=== PATIENT | male | born 1965 | race Caucasian/White ===

== ENCOUNTER → 2023-05-10 15:27 | Outpatient (CLI) | payer OTHER, SELFPAY ==
--- NOTE | ~2023-05-10 | MR_ITS ---
EXAMINATION: MR knee LT wo con DATE: 05/10/2023 16:03 INDICATION: Bilateral primary osteoarthritis of the knees. Medial left knee pain. TECHNIQUE: Magnetic resonance imaging (MRI) of the left knee was performed without intravenous contra st. Sequences included axial PD-weighted FS FSE, coronal PD-weighted FSE and PD-weighted FS FSE, sagi ttal PD-weighted FSE, and sagittal T2-weighted FS FSE. COMPARISON: Left knee radiographs 07/18/22 FINDINGS: Medial compartment: There is a complex tear involving body and posterior horn of medial meniscus. There is shallow partia l-thickness cartilage loss of tibial condyle. There is mild subchondral edema-like marrow signal inte nsity involving the medial articular surface. There is partial-thickness cartilage loss of femoral co ndyle, deep at the central articular surface. There are tiny osteophytes. Lateral compartment: Lateral meniscus is normal. Lateral compartment cartilage is normal. There are tiny osteophytes. Patellofemoral compartment: There is shallow partial-thickness cartilage loss of patellar medial and lateral facets. The trochlea r cartilage is normal. There are tiny osteophytes. Ligaments and tendons: The anterior and posterior cruciate ligaments are normal. Medial collateral ligament and lateral mirna ateral ligament complex are normal. There is mild patellar tendinopathy. Fluid: There is a small knee joint effusion. There is mild prepatellar and superficial infrapatellar bursiti s. IMPRESSION: 1. Moderate chondrosis of medial compartment and mild chondrosis of patellofemoral compartment. 2. Tear of medial meniscus. 3. Small knee joint effusion. Reviewed, dictated and finalized at location E. IMPRESSION: 1. Moderate chondrosis of medial compartment and mild chondrosis of patellofemo ral compartment. 2. Tear of medial meniscus. 3. Small knee joint effusion.
--- NOTE | ~2023-05-10 | MR_ITS ---
EXAMINATION: MR knee RT wo con DATE: 05/10/2023 16:11 INDICATION: M17.0 - Bilateral primary osteoarthritis of knee TECHNIQUE: Magnetic resonance imaging (MRI) of the knee was performed without intravenous contrast. S equences included axial PD-weighted FS FSE, coronal PD-weighted FSE and PD-weighted FS FSE, sagittal PD-weighted FSE, and sagittal T2-weighted FS FSE. COMPARISON: X-ray knee 07/18/2022, images only FINDINGS: Medial compartment: Linear, obliquely oriented intermediate signal extending from the articular surface at the junction o f the posterior horn and body, extending through the substance of the posterior horn and to the under surface the posterior horn more medially. Moderate diffuse cartilage thinning in the medial compartme nt. Mild osteophytosis. Lateral compartment: Apical tear of the meniscal body. Mild diffuse cartilage thinning. Mild osteophytosis. Patellofemoral compartment: Minimal partial-thickness, linear cartilage signal abnormality in the lateral facet. Intact retinacul a. Mild osteophytosis. Ligaments and tendons: The ACL, PCL, MCL, and LCL are intact. Remaining flexor and extensor tendons are intact. Fluid: Small volume joint fluid. Small Leach's cyst. Osseous/other: No suspicious focal or diffuse marrow signal. IMPRESSION: Oblique, likely healed or partially healed meniscal tear involving the body and posterior horn of the medial meniscus. Apical tear of the body of the lateral meniscus. Tricompartmental osteoarthritic changes, moderate in the medial compartment. Small joint effusion. Small Leach's cyst. Reviewed, dictated and finalized at location K.
== END ==
PROVIDERS: PCP Orthopaedic Surgery; Visit Provider Orthopaedic Surgery
DX: M17.0 Bilateral primary osteoarthritis of knee (principal)
CPT/HCPCS: 73721

== ENCOUNTER 2023-07-18 14:09 | Emergency (ER) | payer OTHER, SELFPAY ==
[2023-07-18 14:13] VITALS: BP 143/81; PULSE 64; RESP 18; TEMP 36.3; O2SAT 100
--- NOTE | 2023-07-18 15:50 | PC.NURSE ---
Pt states he would no longer like to wait and will come back later
== END 2023-07-18 16:08 | disposition left against medical advice (07) ==
DX: R06.02 Shortness of breath (principal)
CPT/HCPCS: 99199

== ENCOUNTER 2023-07-19 08:12 | Emergency (ER) | payer OTHER, SELFPAY ==
[2023-07-19] VITALS (40 sets, daily range): BP systolic 111–139; BP diastolic 67–85; PULSE 52–79; RESP 12–24; O2SAT 90–100
--- NOTE | ~2023-07-19 | XR_ITS ---
EXAMINATION: XR chest 1V portable 07/19/2023 09:01 INDICATION: Shortness of breath. Upper chest pain. PROCEDURE: AP portable chest COMPARISON: No prior studies for comparison. FINDINGS: The lungs are clear. The cardiomediastinal silhouette is within normal limits. There are no pleural effusions. There is no pneumothorax suspected. IMPRESSION: 1: NO ACUTE CARDIOPULMONARY DISEASE. Reviewed, dictated and finalized at location B. [employer]
--- NOTE | 2023-07-19 08:31 | ED.GENADULT ---
HPI - General Adult General Chief complaint: Shortness of Breath/Dyspnea Stated complaint: pain with taking deep breath Time Seen by Provider: 07/19/23 08:21 History of Present Illness HPI narrative: 57-year-old male presenting to the ED for evaluation of shortness of breath that is been worsening over the last 4 days. Patient states he does have intermittent chest pain with this and does describe some right-sided chest pressure. Patient denies any sharp pain with deep inspiration. Patient denies any recent cough colds or fevers. Patient denies any prior history of VA and has not had a stress test. Patient denies any prior history of PE or DVT. Related Data Home Medications Medication Instructions Recorded Confirmed atorvastatin 10 mg tablet 10 mg PO DAILY 05/22/23 05/22/23 Allergies Allergy/AdvReac Type Severity Reaction Status Date / Time No Known Allergies Allergy Verified 07/18/23 14:10 Review of Systems Review of Systems: All systems reviewed & are unremarkable except as noted in HPI and below PMFSH Past Medical History Medical History Arthritis Degenerative arthritis of knee, bilateral Sinusitis Surgical History Surgical History History of appendectomy History of arthroscopy of both knees Dr. 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 HEAD: normocephalic, atraumatic. EYES: PERRLA/EOMI, conjunctivae clear. NOSE: Normal no drainage EARS:TMS clear with good light reflex. THROAT: Pharynx clear, no exudate. NECK: Supple. No adenopathy, no masses. RESPIRATORY: Airway patent, respirations nonlabored. Clear to auscultation bilaterally, no rales, rhonchi, wheezing. CARDIOVASCULAR: Regular rate and rhythm without murmurs rubs or gallops. ABDOMINAL: Soft, nontender, nondistended, normal bowel sounds MUSCULOSKELETAL: Moves all extremities. Strength/ROM intact, No edema, No calf tenderness. NEURO: Alert. Cranial nerves II through XII intact. Grossly intact SKIN: Warm, dry. Normal Color Course Course Emergency Course: 57-year-old male presenting ED for evaluation of shortness of breath and right-sided chest pain. EKG showed no evidence of acute STEMI. Patient was afebrile with no leukocytosis and a stable hemoglobin. No significant abnormalities on his CMP. Patient had negative serial troponins and a normal BNP. Patient was negative for influenza RSV and COVID. Patient did feel improved after the breathing treatment. With no significant cardiac history and negative EKG and serial troponins low concern for ACS. Suspect viral etiology as the underlying cause for his shortness of breath. Patient was encouraged to have close follow-up with his primary care physician for additional outpatient cardiac testing. Vital Signs Vital signs: Vital Signs Pulse Rate 62 07/19/23 08:19 Respiratory Rate 16 07/19/23 08:19 Blood Pressure 139/81 07/19/23 08:19 Pulse Oximetry 99 07/19/23 08:19 Oxygen Delivery Room Air 07/19/23 08:19 Pulse Rate 58 L 07/19/23 1
[2023-07-19] MEDS: ALBUTEROL SULFATE NEB 2.5 MG/3 ML INH INHALATION (08:34)
[2023-07-19 08:49] LABS: Basophils Percent Auto 0.8 % (0.2-1.2); Eosinophils Absolute Auto 0.3 K/mm3 (0-0.3); Eosinophils Percent Auto 6.5 % (0-4.4); Hematocrit 45.5 % (42.0-52.0); Hemoglobin 15.3 g/dL (14.0-18.0); Immature Granulocyte Absolute 0.01 K/mm3 (0.00-0.031); Immature Granulocyte Percent A 0.2 % (0-0.5); Lymphocytes Absolute Auto 1.97 K/mm3 (0.9-3.2); Lymphocytes Percent Auto 39.9 % (18.3-44.2); Mean Corpuscular HGB Conc 33.6 g/dl (32-36); Mean Corpuscular Hemoglobin 29.9 pg (26-34); Mean Platelet Volume 10.5 fl (7.4-10.4); Monocytes Absolute Auto 0.5 K/mm3 (0.1-0.6); Monocytes Percent Auto 10.5 % (2.6-8.5); Neutrophils Absolute Auto 2.1 K/mm3 (1.3-6.7); Neutrophils Percent Auto 42.1 % (45.5-73.1); Platelet Count Result 215 k/mm3 (150-375); Red Blood Count 5.11 M/mm3 (4.6-6.20); Red Cell Distribution Width 12.9 % (11.5-14.5); White Blood Count 4.9 K/mm3 (4.5-10.0)
[2023-07-19 09:00] LABS: Prothrombin Time 13.6 Seconds (11.1-14.7)
[2023-07-19 09:01] LABS: Alanine Aminotransferase 51 U/L (6-50); Albumin Level 4.5 g/dL (3.5-5.1); Alkaline Phosphatase 93 U/L (38-126); Anion Gap 10 mmol/L (8-16); Aspartate Amino Transferase 36 U/L (17-59); Blood Urea Nitrogen 19 mg/dL (9-20); Calcium 9.5 mg/dL (8.4-10.2); Carbon Dioxide 23 mmol/L (22-30); Chloride 106 mmol/L (98-107); Estimated CRCL calculation 60 ml/min; Estimated Glomerular Filt Rate > 60; Glucose 144 mg/dL (65-110); Partial Thromboplastin Time 35.1 SECONDS (22.3-36.8); Sodium 139 mmol/L (137-145)
[2023-07-19 09:11] LABS: Troponin I < 0.012 ng/mL (0.000-0.034)
[2023-07-19 09:12] LABS: D Dimer < 0.27 ug/mL (<0.48)
[2023-07-19 09:35] LABS: Influenza A QL RT-PCR Negative (Negative); Influenza B QL RT-PCR Negative (Negative); RSV RNA, RT-PCR Negative (Negative); SARS-CoV-2 RNA PCR Negative (Negative)
[2023-07-19 09:48] LABS: NT Pro B Type Natriuretic Pept < 20 pg/mL (19.9-100)
--- NOTE | 2023-07-19 11:28 | ECG_ITS ---
Measurements Intervals [place] Rate: 57 P: 36 OK: 172 QRS: -19 QRSD: 111 T: 24 QT: 395 QTc: 385 Interpretive Statements SINUS BRADYCARDIA INTRAVENTRICULAR CONDUCTION DELAY NO PREVIOUS ECG AVAILABLE FOR COMPARISON Electronically Signed On 07-20-2023 12:59:28 ELECTRICAL/INSTRUMENT TECHNICIAN by Lopez Cheung M.D.
--- NOTE | 2023-07-19 11:55 | ECG_ITS ---
Measurements Intervals [place] Rate: 51 P: 47 DC: 180 QRS: -29 QRSD: 113 T: 17 QT: 434 QTc: 403 Interpretive Statements SINUS BRADYCARDIA BORDERLINE LEFT AXIS DEVIATION INTRAVENTRICULAR CONDUCTION DELAY Electronically Signed On 07-20-2023 13:01:44 [employer] COMMODORE by Lopez Cheung M.D.
[2023-07-19 12:10] LABS: Troponin I < 0.012 ng/mL (0.000-0.034)
== END 2023-07-19 12:47 | disposition home or self-care (01) ==
PROVIDERS: Emergency Provider Emergency Medicine
DX: R06.00 Dyspnea, unspecified (principal); Z20.822 Contact with and (suspected) exposure to COVID-19; M19.90 Unspecified osteoarthritis, unspecified site; M17.0 Bilateral primary osteoarthritis of knee; R00.1 Bradycardia, unspecified; I45.9 Conduction disorder, unspecified
CPT/HCPCS: 36415; 71045; 80053; 83880; 84484; 85025; 85380; 85610; 85730; 87637; 93005; 94640; 99284

== ENCOUNTER 2024-02-02 20:45 | Emergency (ER) | payer OTHER, SELFPAY ==
[2024-02-02 20:49] VITALS: BP 157/94; PULSE 80; RESP 16; TEMP 37.1; O2SAT 98
[2024-02-02 21:27] VITALS: O2SAT 98
--- NOTE | 2024-02-02 21:27 | PC.NURSE ---
Pt provided starry soda. Pt was able to clear food bolus and has no further complaints at this time. EDP Dr. Brewer made aware.
--- NOTE | 2024-02-02 21:28 | ED.GENADULT ---
HPI - General Adult General Chief complaint: Unspecified Stated complaint: food bolus Time Seen by Provider: 02/02/24 21:06 History of Present Illness HPI narrative: This is a 58-year-old male presenting ED with a food bolus. Patient was eating chicken when he felt that there was some stuck in his throat. He then feel a pressure in his chest and was vomiting up anything that he tried to eat. Came to the ED. While in the room he was able to vomit up the food bolus. He is currently asymptomatic. Patient has had similar symptoms past but never to this extent. He has never seen a GI doctor. Related Data Home Medications Medication Instructions Recorded Confirmed atorvastatin 10 mg tablet 10 mg PO DAILY 05/22/23 05/22/23 Allergies Allergy/AdvReac Type Severity Reaction Status Date / Time No Known Allergies Allergy Verified 07/18/23 14:10 [facility] Past Medical History Medical History Arthritis Degenerative arthritis of knee, bilateral Sinusitis Surgical History Surgical History History of appendectomy History of arthroscopy of both knees Dr. 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 Head: atraumatic. EYES: EOMI, NOSE: Atraumatic NECK: Trachea midline RESPIRATORY: No increased rate of breathing, CTAB CARDIOVASCULAR: RRR, ABDOMINAL: Non-distended, soft non-tender MUSCULOSKELETAl: No obvious deformities NEURO: Alert. Moving 4/4 extremities SKIN:: Warm, dry. Normal color PSYCHIATRIC: Normal affect Course Vital Signs Vital signs: Vital Signs Temperature 98.7 F 02/02/24 20:49 Pulse Rate 80 02/02/24 20:49 Respiratory Rate 16 02/02/24 20:49 Blood Pressure 157/94 H 02/02/24 20:49 Pulse Oximetry 98 02/02/24 20:49 Oxygen Delivery Room Air 02/02/24 20:49 Temperature 98.7 F 02/02/24 20:49 Pulse Rate 80 02/02/24 20:49 Respiratory Rate 16 02/02/24 20:49 Blood Pressure 157/94 H 02/02/24 20:49 Pulse Oximetry 98 02/02/24 21:27 Oxygen Delivery Room Air 02/02/24 21:27 Medical Decision Making MDM Narrative Medical decision making narrative: -Course: 58-year-old male presenting with a food bolus. Patient was able to vomit up the food bolus without any intervention on our behalf. He is now tolerating p.o.. Patient will be discharged with GI follow-up/return precautions. Vital Signs Vital Signs: Vital Signs Temperature 98.7 F 02/02/24 20:49 Pulse Rate 80 02/02/24 20:49 Respiratory Rate 16 02/02/24 20:49 Blood Pressure 157/94 H 02/02/24 20:49 Pulse Oximetry 98 02/02/24 20:49 Oxygen Delivery Room Air 02/02/24 20:49 Temperature 98.7 F 02/02/24 20:49 Pulse Rate 80 02/02/24 20:49 Respiratory Rate 16 02/02/24 20:49 Blood Pressure 157/94 H 02/02/24 20:49 Pulse Oximetry 98 02/02/24 21:27 Oxygen Delivery Room Air 02/02/24 21:27 Discharge Plan Discharge Clinical Impression: Food impaction of esophagus Patient Disposition: Home, Self-Care Condition: Stable Instructions: Antibiotic Form, Food Impaction (ED
== END 2024-02-02 21:36 | disposition home or self-care (01) ==
PROVIDERS: Emergency Provider Emergency Medicine; PCP Family Medicine
DX: T18.128A Food in esophagus causing other injury, initial encounter (principal); M17.0 Bilateral primary osteoarthritis of knee; W44.F3XA Food entering into or through a natural orifice, initial encounter
CPT/HCPCS: 99281

== ENCOUNTER 2024-06-30 08:03 | Emergency (ER) | payer OTHER, SELFPAY ==
[2024-06-30 08:12] VITALS: BP 129/86; PULSE 69; RESP 16; TEMP 36.5; O2SAT 99
--- NOTE | 2024-06-30 08:27 | ED_ITS ---
HPI - URI/Sore Throat General Chief Complaint: Upper Respiratory Infection Stated Complaint: Sinus Infection Symptoms Time Seen by Provider: 06/30/24 08:20 Source: patient and RN notes reviewed Mode of arrival: ambulatory Limitations: no limitations History of Present Illness HPI Narrative: 58 year old male presents with concern for 5 day history of sore throat, sinus congestion, sinus pain. Reports history of pneumonia and sinusitis. Reports chronic sinus problems, he has had 2 sinus surgeries. Reports taking Mucinex without relief. He reports his grandson has similar symptoms. He denies current cough. MD elicited complaint: sore throat, nasal congestion and sinus pain Related Data Home Medications Medication Instructions Recorded Confirmed atorvastatin 10 mg tablet 10 mg PO DAILY 05/22/23 06/30/24 Allergies Allergy/AdvReac Type Severity Reaction Status Date / Time No Known Allergies Allergy Verified 06/30/24 08:19 Review of Systems Review of Systems: CONSTITUTIONAL: Reports malaise EYES: Denies visual changes, redness, or discharge. ENT: Reports rhinorrhea, congestion, sinus pain,and sore throat. CARDIOVASCULAR: Denies chest pain, palpitations, or edema. RESPIRATORY: Denies cough. Denies dyspnea. GASTROINTESTINAL: Denies abdominal pain, nausea, vomiting, diarrhea SKIN: Denies rash or itching. MUSCULOSKELETAL: Denies myalgia. NEUROLOGIC: Denies headache. All systems reviewed & are unremarkable except as noted in HPI and below PMFSH Past Medical History Medical History Arthritis Degenerative arthritis of knee, bilateral Sinusitis Surgical History Surgical History History of appendectomy History of arthroscopy of both knees Dr. Montano; meniscectomy Family History Family History Father Cancer Hypertension Social History Social History Smoking status: Never smoker Alcohol intake: current Alcohol use details: social Substance use type: does not use Current Housing: Decline to Answer Concerned About Future Housing: Decline to Answer Difficulty Paying Gas/Electric Bills: Decline to Answer Difficulty Paying for Meds: Decline to Answer Currently Unemployed: Decline to Answer Education: Decline to Answer Difficulty w/ Childcare or Family Care: Decline to Answer Living arrangements: with family Occupation/Education: occupation 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 There is no relevant family history pertinent to the presenting complaint Exam Narrative: GENERAL: Well-appearing, well-nourished, and in no acute distress. HEAD: Normocephalic EYES: PERRLA, conjunctivae clear ENT: Nares clear, turbinates edematous and erythematous. Mucous membranes moist. TM pearly joshi with dull light reflex bilaterally; no tragal tenderness. Oropharynx not erythematous without lesions. Tonsils not enlarged and without exudate, no drooling, no hoarseness, no trismus, uvula midline. NECK: Supple. No lymphadenopathy CHEST: Clear to auscultation, breath sounds equal. No wheezing, rhonchi, rales, or stridor. No respiratory distress, speaks in full sentences. HEART: Regular rate and rhythm. No murmur heard. SKIN: Warm, dry, no rash. NEURO: Alert and oriented x3. PSYCH: Normal mood and affect Course Course Emergency Course: Patient is aware of diagnosis, understands and agrees to treatment plan. Anticipatory guidance given. Patient agrees to follow-up as directed and is aw are of reasons to seek care at the emergency department. Portions of this record may have been created with voice recognition software Level of Care: Express Care Visit Vital Signs Vital signs: Vital Signs Temperature 97.7 F 06/30/24 08:12 Pulse Rate 69 06/30/24 08:12 Respiratory Rate 16 06/30/24 08:12 Blood Pressure 129/86 06/30/24 08:12 Pulse Oximetry 99 06/30/24 08:12 Oxygen Delivery Room Air 06/30/24 08:12 Temperature 97.7 F 06/30/24 08:12 Pulse Rate 69 06/30/24 08:12 Respiratory Rate 16 06/30/24 08:12 Blood Pressure 129/86 06/30/24 08:12 Pulse Oximetry 99 06/30/24 08:12 Oxygen Delivery Room Air 06/30/24 08:12 Reviewed. MDM - URI/Sore Throat MDM Narrative Medical decision making narrative: Differential diagnosis considered: Lora virus, strep pharyngitis, allergic rhinitis, upper respiratory tract infection, sinusitis, rhinosinusitis, nasopharyngitis. viral pharyngitis, otitis media, otitis externa, pneumonia, bronchitis, viral cough syndrome, viral syndrome, and influenza. Exam findings show no acute concerns or changes; patient is non-toxic appearing and is in no distress. Patient is appropriate for outpatient treatment and follow-up. Lab Data Attestation: I reviewed the patient's lab results. Critical Care Time Critical Care Time Critical Care Time: No Discharge Plan Discharge Clinical Impression: Chronic sinusitis Patient Disposition: Home, Self-Care Condition: Stable Instructions: Antibiotic Form, Sinusitis (ED) Additional Instructions: Take medication as prescribed Nonprescription pain medications, such as acetaminophen (eg, Tylenol) or ibuprofen (eg, Motrin, Advil), are recommended for pain. Flushing the nose and sinuses with a saline solution several times per day has been proven to decrease pain associated with congestion and shorten the duration of symptoms. Nasal steroids (such as Flonase, 2 sprays in each nostril daily) can help to reduce swelling inside the nose, usually within two to three days. These drugs have few side effects and relieve symptoms in most people. Oral decongestants (pseudoephedrine and phenylephrine) may be helpful if you have associated symptoms of ear pain or fullness. Nasal decongestant sprays, including oxymetazoline (Afrin) and phenylephrine (Danilo-Synephrine), can be used to temporarily treat congestion. However, these sprays should not be used for more than two to three days due to the risk of rebound congestion (when the nose becomes congested constantly unless the medication is used repeatedly), possible addiction, and long-term consequences of frequent use, including persistent nasal dryness and crusting, which is very difficult to treat once it has developed. Medications to thin secretions (such as guaifenesin) may help to clear mucus. Please follow-up with your primary care doctor in the next 1-2 days. If you cannot follow-up with your primary care doctor please go to the ED for any urgent issues. If you have any worsening of symptoms or any other concerns please go to the ED immediately. Prescriptions: New doxycycline monohydrate 100 mg tablet 100 mg PO BID 7 Days Qty: 14 0RF methylprednisolone [Medrol (Andrew)] 4 mg tablets,dose pack See Rx Instructions .ROUTE .COMPLEX Qty: 21 0RF Rx Instructions: orally per package directions No Action atorvastatin 10 mg tablet 10 mg PO DAILY albuterol sulfate 90 mcg/actuation HFA aerosol inhaler 1 inh inhalation QID PRN (Reason: shortness of breath or wheezing) Qty: 6.7 0RF Follow-up/Referrals: Amber,Leopoldo Martin MD [Primary Care Provider] - Stand Alone Forms: Work/School Release IP Time of Disposition: 08:30
== END 2024-06-30 08:32 | disposition home or self-care (01) ==
PROVIDERS: Emergency Provider Nurse Practitioner; PCP Family Medicine
DX: J32.9 Chronic sinusitis, unspecified (principal); M17.0 Bilateral primary osteoarthritis of knee
CPT/HCPCS: 99213; G0463

== ENCOUNTER 2024-07-22 07:00 | Outpatient (NON) | payer OTHER, SELFPAY | END 2024-07-22 07:01 | disposition home or self-care (01) | LOC: ANHLAB 07-23 09:33 | PROVIDERS: PCP Family Medicine; Visit Provider Internal Medicine Gastroenterology | DX: Z12.11 Encounter for screening for malignant neoplasm of colon (principal); R13.10 Dysphagia, unspecified | CPT/HCPCS: 88305 ==

== ENCOUNTER 2024-07-22 07:41 | Day surgery (SDC) | payer OTHER, SELFPAY ==
[2024-04-29 14:05] VITALS: BMI 27.4
[2024-06-05 09:41] VITALS: BMI 27.1
[2024-07-22 09:03] VITALS: BP 130/84; PULSE 59; RESP 16; TEMP 36.6; O2SAT 97
[2024-07-22] MEDS: LACTATED RINGERS 1,000 ML 150 ML IV CONT (09:06)
--- NOTE | 2024-07-22 09:34 | P.HP_ITS ---
History of Present Illness History of Present Illness Consent: Risks, benefits, and alternatives have been discussed and questions answered. Patient agrees to proceed with procedure. Chief complaint: Dysphagia, neoplasia screening Narrative: Rell Vega is a 58 year old male presents for screening colonoscopy as well as EGD. Patient desires neoplasia screening because of his age. His current weight appetite and bowel movements are normal. Patient denies abdominal pain. He has had no bleeding. Family history is noncontributory. Additionally patient has noticed intermittent dysphagia. Occasionally solid foods such as meat will pass thoroughly slowly through the mid chest. He denies any heartburn. He has had no weight loss. He did go to the emergency room on 1 occasion before this spontaneously was regurgitated. The patient is on no medications. He presents for EGD as well. Review of Systems Review of Systems: All systems reviewed & are unremarkable except as noted in HPI and below PMFSH Past Medical History Medical History Arthritis Degenerative arthritis of knee, bilateral Sinusitis Surgical History Surgical History History of appendectomy History of arthroscopy of both knees Dr. Montano; meniscectomy Family History Family History Father Cancer Hypertension Social History Social History Smoking status: Never smoker Alcohol intake: current Alcohol use details: social Substance use type: does not use Current Housing: Decline to Answer Concerned About Future Housing: Decline to Answer Difficulty Paying Gas/Electric Bills: Decline to Answer Difficulty Paying for Meds: Decline to Answer Currently Unemployed: Decline to Answer Education: Decline to Answer Difficulty w/ Childcare or Family Care: Decline to Answer Living arrangements: with family Occupation/Education: occupation 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 Spiritual care concerns: No Meds Home Medications and Allergies Home Medications ?Medication ?Instructions ?Recorded ?Confirmed ?Type atorvastatin 10 mg tablet 10 mg PO DAILY 05/22/23 06/30/24 History albuterol sulfate 90 mcg/actuation 1 inh inhalation QID PRN shortness 07/19/23 06/30/24 Rx aerosol inhaler of breath or wheezing #6.7 grams Allergies Allergy/AdvReac Type Severity Reaction Status Date / Time No Known Allergies Allergy Verified 07/22/24 09:01 Vital Signs Vital Signs - 24 hr 07/22/24 09:03 Temperature 97.9 F Pulse Rate 59 L Respiratory Rate 16 Blood Pressure 130/84 Pulse Oximetry 97 Oxygen Delivery Room Air Exam Narrative: Physical exam reveals patient alert. Vital signs stable. HEENT exam is unremarkable. Patient is anicteric. Lungs are clear to auscultation and to percussion. Heart is without murmur or extra sounds. Abdomen bowel sounds are present soft nontender with no organomegaly. Digital external rectal exam normal. Assessment and Plan Assessment and plan (1) Screening for malignant neoplasm of colon: Code(s): Z12.11 - Encounter for screening for malignant neoplasm of colon Status: Acute Assessment and Plan: Presents today for neoplasia screening colonoscopy. Further recommendations may be given after endoscopy. (2) Dysphagia: Code(s): R13.10 - Dysphagia, unspecified Status: Acute Assessment and Plan: Patient with intermittent dysphagia to solid food , this suggests esophageal narrowing. EGD to be performed. Further recommendations may be given after endoscopy.
--- NOTE | 2024-07-22 10:02 | WPDANESEPPF ---
Anes - Initial Pre Proc Eval Procedure: Operation Date: 07/22/24 10:15 Proposed Procedures p Esophagogastroduodenoscopy - Diego Ro MD s Screening Colonoscopy - Diego Ro MD Date/Time: 07/22/24 10:02 Surgeon: Diego Ro MD Pre Op Diagnosis: Dysphagia, neoplasia screening Patient Data Age: 58 Gender: M Height: 1.73 m Weight: 80.25 kg Last Vital Signs Temp 36.6 C 07/22/24 09:03 Pulse 59 L 07/22/24 09:03 Resp 16 07/22/24 09:03 BP 130/84 07/22/24 09:03 Pulse Ox 97 07/22/24 09:03 O2 Del Method Room Air 07/22/24 09:03 Allergies Allergy/AdvReac Type Severity Reaction Status Date / Time No Known Allergies Allergy Verified 07/22/24 09:01 Home Medications ?Medication ?Instructions ?Recorded ?Confirmed ?Type atorvastatin 10 mg tablet 10 mg PO DAILY 05/22/23 06/30/24 History albuterol sulfate 90 mcg/actuation 1 inh inhalation QID PRN shortness 07/19/23 06/30/24 Rx aerosol inhaler of breath or wheezing #6.7 grams Patient hx anesthesia problems: none Family hx anesthesia problems: none Results Review: All pre-operative results and documents have been reviewed as part of the pre-operative evaluation. [facility] Past Medical History Medical History Degenerative arthritis of knee, bilateral Sinusitis Arthritis Surgical History Surgical History History of arthroscopy of both knees Dr. Montano; meniscectomy History of appendectomy Family History Family History Father Cancer Hypertension Social History Social History Smoking status: Never smoker Alcohol intake: current Alcohol use details: social Substance use type: does not use Current Housing: Decline to Answer Concerned About Future Housing: Decline to Answer Difficulty Paying Gas/Electric Bills: Decline to Answer Difficulty Paying for Meds: Decline to Answer Currently Unemployed: Decline to Answer Education: Decline to Answer Difficulty w/ Childcare or Family Care: Decline to Answer Living arrangements: with family Occupation/Education: occupation 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 Informed Consent: The patient's anesthetic plan and its attendant risks and benefits were discussed with the patient/family/POA. Questions were solicited and answers provided to the satisfaction of the patient/family/POA.
[2024-07-22 10:44] VITALS: BP 109/77; PULSE 67; RESP 16; O2SAT 97
[2024-07-22 10:54] VITALS: BP 117/81; PULSE 65; RESP 16; O2SAT 100
[2024-07-22 11:04] VITALS: BP 129/87; PULSE 67; RESP 18; O2SAT 100
--- NOTE | 2024-07-22 11:29 | WPDANESPN ---
Anes - Prog Note Post-Op Date/Time: 07/22/24 11:29 Cardiovascular status: normal Respiratory status: normal Airway patency: baseline Mental status: baseline Post-Op hydration status: normal Vital Signs: Last Vital Signs Temp 36.6 C 07/22/24 09:03 Pulse 67 07/22/24 11:04 Resp 18 07/22/24 11:04 BP 129/87 07/22/24 11:04 Pulse Ox 100 07/22/24 11:04 O2 Del Method Room Air 07/22/24 11:04 Pain Score (VAS): 0/10 I/O: Intake & Output 07/21/24 07/22/24 07/22/24 23:59 07:59 15:59 Intake Total 400 Balance 400 Patient Feedback: Patient satisfied with anesthetic care.
== END 2024-07-22 11:21 | disposition home or self-care (01) ==
PROVIDERS: PCP Family Medicine; Visit Provider Internal Medicine Gastroenterology
PROC: 0DJ08ZZ Inspection of Upper Intestinal Tract, Via Natural or Artificial Opening Endoscopic (ICD-10-PCS; CPT 43235; principal; 2024-07-22 10:15)
PROC: 0DJD8ZZ Inspection of Lower Intestinal Tract, Via Natural or Artificial Opening Endoscopic (ICD-10-PCS; CPT 45378; 2024-07-22 10:15)
DX: Z12.11 Encounter for screening for malignant neoplasm of colon (principal); R13.19 Other dysphagia; K64.8 Other hemorrhoids; Q39.4 Esophageal web; K22.10 Ulcer of esophagus without bleeding
CPT/HCPCS: 45378; 43450; 43239